=== PATIENT | male | born 1990 | race African-American/Black ===

== ENCOUNTER 2020-01-08 14:51 | Outpatient (CLI) | payer OTHER, SELFPAY ==
--- NOTE | ~2020-01-08 | CT_ITS ---
EXAMINATION: CT ankle RT wo con DATE: 01/08/2020 15:19 INDICATION: Post open reduction internal fixation of a right ankle fracture TECHNIQUE: High resolution computed tomography (CT) of the right was performed without intravenous co ntrast. Additional sagittal and coronal reconstructions were performed. Automated exposure control an d iterative reconstruction technique were employed. The dose-length product was 397.35 mGy-cm. COMPARISON: Right ankle radiographs dated 01/03/2020 FINDINGS: Callus formation is seen at the caudal aspect of a previously healing right fibular diaphyseal fractu re which is located beyond the cephalad margin of the [id number] CT imaging. There are a few small chronically nonunited fracture fragments along the posterior medial aspect of the distal tibia likel y posterior malleolar avulsion fracture fragments at the tibial side of the posterior inferior tibiof ibular ligament. There are some periosteal reaction along the lateral margin of the distal metadiaphy seal region of the tibia likely secondary to periosteal avulsion injury along the tibial side of the distal tibiofibular syndesmosis. There are a pair of cannulated lag screws at the medial malleolus fo r fixation of a prior medial malleoli fracture which has solidly healed in essentially anatomic align ment. There are also postoperative changes consistent with a TightRope type syndesmotic fixation with metallic buttons along the medial and lateral margins of a lucent wire fixation tract extending acro ss the distal tibia and fibula. No acute fractures identified. There is patchy disuse osteopenia thro ughout the visualized right mid and hindfoot. Osteoarthritis with mild to moderate nonuniform joint s pace are at the right ankle. Mild osteoarthritis at multiple joints in the mid and hindfoot. Small cedric ne island at the head of the talus. No ankle joint effusion or other evident abnormal fluid collectio ns. IMPRESSION: 1. Near-anatomic alignment post internal fixation of a now healed medial malleolar fracture and dista l tibiofibular syndesmotic injury as detailed above. 2. 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 Reviewed, dictated and finalized at location A. IMPRESSION: 1. Near-anatomic alignment post internal fixation of a now healed medial malleo lar fracture and distal tibiofibular syndesmotic injury as detailed above. 2. 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
== END 2020-01-08 14:52 | disposition home or self-care (01) ==
LOC: ANHIMG 14:57
PROVIDERS: PCP Family Medicine; Visit Provider Orthopaedic Surgery
DX: M19.071 Primary osteoarthritis, right ankle and foot (principal)
CPT/HCPCS: 73700

== ENCOUNTER 2023-11-09 18:01 | Emergency (ER) | payer MEDICARE, MEDICAID, SELFPAY ==
--- NOTE | ~2023-11-09 | XR_ITS ---
EXAM: XR hand RT 2V DATE: 11/09/2023 20:11 HISTORY: post reduction . COMPARISON: Same date at 6:18 PM. FINDINGS/IMPRESSION: Successful interval reduction of the dislocated right fourth and fifth metacarpa ls. Minimal persistent lateral displacement of 2 mm, measured at the third-fourth intermetatarsal art iculation. Reviewed, dictated and finalized at location K.
--- NOTE | ~2023-11-09 | XR_ITS ---
EXAM: XR hand RT min 3V, XR wrist RT min 3V DATE: 11/09/2023 18:26 HISTORY: injury . COMPARISON: None available. FINDINGS: Normal mineralization. Posterior dislocations at the bases of the fourth and fifth metacar pals, with one shaft width posterior displacement, anterior angulation, 5 mm foreshortening the fourt h metacarpal, and 13 mm foreshortening of the fifth metacarpal. No fracture. No lytic or blastic lesi on. Joint spaces are maintained. No erosion or periosteal change. Soft tissues within normal limits. IMPRESSION: Dislocation of the right fourth and fifth metacarpal bases, with posterior displacement a nd foreshortening. No definite hand or wrist fracture detected. Reviewed, dictated and finalized at location K. IMPRESSION: Dislocation of the right fourth and fifth metacarpal bases, with po sterior displacement and foreshortening. No definite hand or wrist fracture det ected.
[2023-11-09 18:16] VITALS: BP 132/72; PULSE 68; RESP 16; TEMP 37; O2SAT 98
--- NOTE | 2023-11-09 18:33 | ED.UPPEXIN ---
HPI - Extremity Injury (Upper) General Chief Complaint: Extremity Injury, Upper <Tremaine Bills MD - Last Filed: 11/09/23 18:38> Stated Complaint: right hand injury <Tremaine Bills MD - Last Filed: 11/09/23 18:38> Time Seen by Provider: 11/09/23 18:31 <Tremaine Bills MD - Last Filed: 11/09/23 18:38> Source: patient <Tremaine Bills MD - Last Filed: 11/09/23 18:38> Mode of arrival: ambulatory <Tremaine Bills MD - Last Filed: 11/09/23 18:38> Limitations: no limitations <Tremaine Bills MD - Last Filed: 11/09/23 18:38> History of Present Illness HPI narrative: 33-year-old otherwise healthy with complains of pain and swelling to his right hand. Patient states that he tripped and fell on an outstretched hand <Tremaine Bills MD - Last Filed: 11/09/23 18:38> MD complaint: injury to: right <Tremaine Bills MD - Last Filed: 11/09/23 18:38> Onset (ago): minute(s) (20) <Tremaine Bills MD - Last Filed: 11/09/23 18:38> Other Extremity Injury: Right: hand <Tremaine Bills MD - Last Filed: 11/09/23 18:38> Other injuries: none <Tremaine Bills MD - Last Filed: 11/09/23 18:38> Handedness: right <Tremaine Bills MD - Last Filed: 11/09/23 18:38> Place: home <Tremaine Bills MD - Last Filed: 11/09/23 18:38> Severity: mild <Tremaine Bills MD - Last Filed: 11/09/23 18:38> Exacerbating factors: none <Tremaine Bills MD - Last Filed: 11/09/23 18:38> Context: fall <Tremaine Bills MD - Last Filed: 11/09/23 18:38> Associated symptoms: denies other symptoms <Tremaine Bills MD - Last Filed: 11/09/23 18:38> Related Data Allergies/Adverse Reactions: Allergies Allergy/AdvReac Type Severity Reaction Status Date / Time No Known Allergies Allergy Unverified 01/08/23 14:25 <Tremaine Bills MD - Last Filed: 11/09/23 18:38> Review of Systems Review of Systems: All systems reviewed & are unremarkable except as noted in HPI and below <Tremaine Bills MD - Last Filed: 11/09/23 18:38> Constitutional: Constitutional: Reports no additional constitutional complaints <Tremaine Bills MD - Last Filed: 11/09/23 18:38> Eyes: Eyes: Reports no additional eye complaints <Tremaine Bills MD - Last Filed: 11/09/23 18:38> ENT: Reports system reviewed and no additional complaints, except as documented <Tremaine Bills MD - Last Filed: 11/09/23 18:38> Cardiovascular: Cardiovascular: Reports no additional cardiovascular complaints <Tremaine Bills MD - Last Filed: 11/09/23 18:38> Respiratory: Respiratory: Reports no additional respiratory complaints <Tremaine Bills MD - Last Filed: 11/09/23 18:38> Gastrointestinal: Gastrointestinal: Reports no additional gastrointestinal complaints <Tremaine Bills MD - Last Filed: 11/09/23 18:38> Musculoskeletal: Musculoskeletal: Reports as per HPI <Tremaine Bills MD - Last Filed: 11/09/23 18:38> Neurologic: Reports system reviewed and no additional complaints, except as documented <Tremaine Bills MD - Last Filed: 11/09/23 18:38> PMFSH Past Medical History Medical History: Medical History Aftercare following surgery Amniotic band syndrome Displaced comminuted fracture of shaft of right fibula, initial encounter for closed fracture Displaced fracture of medial malleolus of right tibia, initial encounter for closed fracture Left below-knee amputee Posterior tibial tendinitis of left leg Syndesmotic disruption of right ankle <Tremaine Bills MD - Last Filed: 11/09/23 18:38> Surgical History Surgical History: Surgical History History of left below knee amputation Status post open reduction and internal fixation (ORIF) of fracture <rTemaine Bills MD - Last Filed: 11/09/23 18:38> Social History Social History: Social History (Reviewed 11/09/23 @ 18:35 by Tremaine Bills,
[2023-11-09] MEDS: BUPivacaine HCL 0.25% PF 30 ML VIAL INFILTRATE (19:51)
[2023-11-09 20:33] VITALS: BP 114/85; PULSE 74; RESP 20; O2SAT 98
--- NOTE | 2023-11-10 13:47 | PC.NURSE ---
pt came in today seeking arm sling. given L arm sling, pitch flaker ok'd.
== END 2023-11-09 20:33 | disposition home or self-care (01) ==
PROVIDERS: Emergency Provider Emergency Medicine; PCP Physician Assistant Medical
DX: S63.064A Dislocation of metacarpal (bone), proximal end of right hand, initial encounter (principal); Z89.512 Acquired absence of left leg below knee; W01.0XXA Fall on same level from slipping, tripping and stumbling without subsequent striking against object, initial encounter
CPT/HCPCS: 26641; 26670; 73110; 73120; 73130; 99285; A4565

== ENCOUNTER 2023-11-18 10:42 | Emergency (ER) | payer MEDICARE, MEDICAID, SELFPAY ==
[2023-11-18 10:51] VITALS: BP 124/74; PULSE 64; RESP 16; TEMP 36.4; O2SAT 100
--- NOTE | 2023-11-18 12:13 | ED.UPPEXIN ---
HPI - Extremity Injury (Upper) General Chief Complaint: Extremity Injury, Upper Stated Complaint: needs new splint? Time Seen by Provider: 11/18/23 11:13 Source: patient Mode of arrival: ambulatory Limitations: no limitations History of Present Illness HPI narrative: Patient is a 33-year-old male who presents the ED with report of needing his splint replaced. Patient was seen in the ED here for a carpometacarpal joint dislocation on 11/08. Dislocation was reduced and patient was placed in a splint in the ED. patient states he took off the for splint after 24 hours. He then followed up with Dr. Roman, hand surgery, on 11/14 and was also noted to have a mallet finger over the right 5th digit at that time. He was placed back in an ulnar gutter splint with special attention to mallet finger. Patient is scheduled to follow-up in 2 weeks, but reports he had to take a shower today and removed his splint at home. Wanting splint replaced. Denies any new injury, pain, numbness. Related Data Allergies Allergy/AdvReac Type Severity Reaction Status Date / Time No Known Allergies Allergy Unverified 11/18/23 10:42 Review of Systems Review of Systems: CONSTITUTIONAL: Denies fever, chills, or sweats. MUSCULOSKELETAL: See HPI. NEUROLOGIC: Denies headache, dizziness, numbness, or weakness. All systems reviewed & are unremarkable except as noted in HPI and below PMFSH Past Medical History Medical History Aftercare following surgery Amniotic band syndrome Displaced comminuted fracture of shaft of right fibula, initial encounter for closed fracture Displaced fracture of medial malleolus of right tibia, initial encounter for closed fracture Left below-knee amputee Posterior tibial tendinitis of left leg Syndesmotic disruption of right ankle Surgical History Surgical History History of left below knee amputation Status post open reduction and internal fixation (ORIF) of fracture Social History Social History Social History: marijuana daily Smoking status: Unknown if ever smoked Tobacco type: cigarettes and e-cigarettes/vaping Alcohol intake: former Substance use: current Substance use type: marijuana Other substance usage details: DAILY Lack of Transportation: No Lack of Food: Never True Current Housing: I Have Housing Concerned About Future Housing: No Difficulty Paying Gas/Electric Bills: No Difficulty Paying for Meds: No Currently Unemployed: No Difficulty w/ Childcare or Family Care: No Living arrangements: with family Occupation/Education: occupation Gender identity (if verbalized by the patient): Male Sexual Orientation (if Verbalized by the Patient): Straight or Heterosexual Exam Narrative: GENERAL: Well appearing, well-nourished, non-toxic, in no acute distress. HEAD: Normocephalic, atraumatic. RESPIRATORY: Airway patent, respirations nonlabored. CARDIOVASCULAR: Regular rate and rhythm. Radial pulses equal bilaterally. MUSCULOSKELETAL: Moves all extremities. No gross deformities. Mild mallet finger deformity to right 5th digit. No significant pain. Minimal swelling noted. No dislocation deformity noted throughout metacarpal region. Sensation intact. Capillary refill intact. Several chronic amputation deformities noted to left hand. SKIN: Warm, dry, normal color. NEURO: A&O X3. Speech clear. PSYCHIATRIC: Appropriate mood and affect. Normal interaction. Course Vital Signs Vital signs: Vital Signs Temperature 97.5 F L 11/18/23 10:51 Pulse Rate 64 11/18/23 10:51 Respiratory Rate 16 11/18/23 10:51 Blood Pressure 124/74 11/18/23 10:51 Pulse Oximetry 100 11/18/23 10:51 Temperature 97.5 F L 11/18/23 10:51 Pulse Rate 64 11/18/23 10:51 Respiratory Rate 16
== END 2023-11-18 13:18 | disposition home or self-care (01) ==
PROVIDERS: Emergency Provider Physician Assistant; PCP Physician Assistant Medical
DX: S63.054D Dislocation of other carpometacarpal joint of right hand, subsequent encounter (principal); M20.011 Mallet finger of right finger(s)
CPT/HCPCS: 29125; 99282

== ENCOUNTER 2023-12-20 15:47 | Outpatient (CLI) | payer MEDICARE, MEDICAID, SELFPAY ==
--- NOTE | ~2023-12-20 | XR_ITS ---
XR hand RT min 3V Ordering provider: Monique Roman MD History: . take out of splint - isolate small finger . Comparison: November 09, 2023 FINDINGS: BONES: Fracture dislocation seen at the base of the distal interphalangeal joint of the little finger with anterior displacement compared to the previous examination. Small chip of bone is seen posterio rly. SOFT TISSUES: Swelling is seen in the area of the dislocation. IMPRESSION: Fracture dislocation at the base of the distal phalanx of the little finger with small bony chip seen posteriorly and displacement of the distal fragment anteriorly. Reviewed, dictated and finalized at location A. IMPRESSION: Fracture dislocation at the base of the distal phalanx of the little finger wit h small bony chip seen posteriorly and displacement of the distal fragment ante riorly.
== END 2023-12-20 15:48 | disposition home or self-care (01) ==
LOC: ANHIMG 15:57
PROVIDERS: PCP Physician Assistant Medical; Visit Provider Plastic Surgery
DX: M20.011 Mallet finger of right finger(s) (principal); S62.636A Displaced fracture of distal phalanx of right little finger, initial encounter for closed fracture
CPT/HCPCS: 73130

== ENCOUNTER 2024-08-25 08:43 | Emergency (ER) | payer MEDICARE, MEDICAID, SELFPAY ==
--- NOTE | 2024-08-25 08:47 | ED_ITS ---
HPI - Dental/Oral General Chief complaint: Dental/Oral Stated complaint: Dental Time Seen by Provider: 08/25/24 08:51 Source: patient, RN notes reviewed and old records reviewed Mode of arrival: ambulatory Limitations: no limitations History of Present Illness HPI Narrative: 34-year-old male presents to the [facility] with complaints of dental pain, right upper jaw pain. Has significant decay to the molars. Surrounding erythema to the gums. Has taken [id number] products. Symptoms started 2 days ago Related Data Allergies Allergy/AdvReac Type Severity Reaction Status Date / Time No Known Allergies Allergy Verified 08/25/24 08:45 Review of Systems Review of Systems: All systems reviewed & are unremarkable except as noted in HPI and below Constitutional: Constitutional: Reports no additional constitutional complaints ENT: Reports as per HPI and Reports dental pain Cardiovascular: Cardiovascular: Reports no additional cardiovascular complaints, Denies chest pain and Denies dyspnea Respiratory: Respiratory: Reports no additional respiratory complaints, Denies chest congestion, Denies cough and Denies dyspnea Musculoskeletal: Musculoskeletal: Reports no additional musculoskeletal complaints Integumentary/Breasts: Skin/Breast: Reports system reviewed and no additional complaints, except as docu PMFSH Past Medical History Medical History Posterior tibial tendinitis of left leg Aftercare following surgery Displaced comminuted fracture of shaft of right fibula, initial encounter for closed fracture Syndesmotic disruption of right ankle Displaced fracture of medial malleolus of right tibia, initial encounter for closed fracture Left below-knee amputee Amniotic band syndrome Surgical History Surgical History Status post open reduction and internal fixation (ORIF) of fracture History of left below knee amputation Social History Social History Social History: marijuana daily Smoking status: Unknown if ever smoked Tobacco type: cigarettes and e-cigarettes/vaping Alcohol intake: former Substance use: current Substance use type: marijuana Other substance usage details: DAILY Lack of Transportation: No Lack of Food: Never True Current Housing: I Have Housing Concerned About Future Housing: No Difficulty Paying Gas/Electric Bills: No Difficulty Paying for Meds: No Currently Unemployed: No Difficulty w/ Childcare or Family Care: No Living arrangements: with family Occupation/Education: occupation Gender identity (if verbalized by the patient): Male Sexual Orientation (if Verbalized by the Patient): Straight or Heterosexual Comments At the time of my signature, I reviewed and agree with the nursing past medical, surgical, social, and family history. There is no relevant family history pertinent to the patient complaint. Exam Const: General: cooperative, healthy appearing, comfortable, no acute distress, well developed, alert and well nourished Nutritional Appearance: well nourished Orientation/consciousness: patient oriented x3 Limitations: no limitations HENMT: Head: normal to inspection Ears: hearing grossly normal bilaterally, external ears normal, TM's normal bilaterally, EAC's normal, mastoids normal and no periauricular adenopathy Mouth: Yes Normal oral and palatal mucosa present, Yes lip normal, Yes tongue normal and Yes moist mucous membranes Teeth and gingiva: abnormal tooth and associated gingiva (Right upper) and caries Throat: posterior oropharynx normal, uvula midline and no uvular edema Eyes: General: appearance normal, both eyes and all related structures Alignment and Position: alignment normal Neck: Neck: normal visual inspection, full ROM, no lymphadenopathy and no meningeal signs Chest: Chest palpation & inspection: normal inspection of the chest Resp: Effort & Inspection: normal respiratory effort and able to speak in complete sentences Auscultation: clear to auscultation bilaterally, no crackles, no rales, no rhonchi and no wheezes Cardio: Rate: regular rate Skin: General skin exam: normal color and no rashes or lesions noted Neuro: General: patient oriented x3, gait normal, moves all extremities and no meningeal signs Cognition (Neuro): normal cognition Speech: normal speech Gait exam (Neuro): Normal gait present Extrem: General: normal to inspection, full ROM, capillary refill normal and normal gait Psych: Appearance: grossly normal and well kempt Mental Status: mental status grossly normal Speech and movement: Normal speech and movement present and Clear speech present Affect: normal affect Attitude: cooperative Course Course Level of Care: Express Care Visit Vital Signs Vital signs: Vital Signs Temperature 96.9 F L 08/25/24 08:52 Pulse Rate 82 08/25/24 08:52 Respiratory Rate 18 08/25/24 08:52 Blood Pressure 122/81 08/25/24 08:52 Pulse Oximetry 99 08/25/24 08:52 Oxygen Delivery Room Air 08/25/24 08:52 Temperature 96.9 F L 08/25/24 08:52 Pulse Rate 82 08/25/24 08:52 Respiratory Rate 18 08/25/24 08:52 Blood Pressure 122/81 08/25/24 08:52 Pulse Oximetry 99 08/25/24 08:52 Oxygen Delivery Room Air 08/25/24 08:52 Reviewed MDM - Dental/Oral MDM Narrative Medical decision making narrative: Patient sitting comfortably in exam room. Nontoxic, vitals stable. Patient presents with right upper dental pain, dental list was given. Started on antibiotics concern for infection versus abscess versus gingivitis, toothache. The patient appropriate for outpatient treatment with close follow-up Discharge instructions reviewed with patient, as well as provided in writing per nursing staff. The instructions also include specific and strict return/GO TO THE ER as well as f/u information. All questions have been answered, and the patient deny any further questions with discharge and discharge plan. Some parts of this dictation were generated by voice recognition software and may contain typographical and/or grammatical inaccuracies. Differential Diagnosis Differential diagnosis: Likely gingival abscess, dental caries, toothache and dental abscess Critical Care Time Critical Care Time Critical Care Time: No Discharge Plan Discharge Clinical Impression: Dental caries, Dental abscess Patient Disposition: Home, Self-Care Condition: Stable Instructions: Antibiotic Form, Dental Abscess (ED) Additional Instructions: Finish the entire course of antibiotics & use the mouthwash. After every time you eat be sure to use salt water rinses. Apply ice to face to help with pain. Take Tylenol alternating with Motrin as needed for pain. You can alternate every 4 hours You need to follow-up with a dental provider as soon as possible for further evaluation and treatment. A list of dental providers has been given to you Follow up with a Primary Care Provider (PCP) about medical needs. A PCP can help keep you healthy by preventive medicine and screening. Go to the ER for New or worsening symptoms. Patient Language: Citizen Of [place] Prescriptions: New penicillin V potassium 500 mg tablet 500 mg PO QID 7 Days Qty: 28 0RF No Action Claritin-D 24 Hour 10-240 mg tablet extended release 24 hr 1 tablet PO DAILY Qty: 30 0RF fluticasone propionate [Flonase Allergy Relief] 50 mcg/actuation spray,suspension 1 spray intranasal BID Qty: 16 2RF Rx Instructions: administer into each nostril Follow-up/Referrals: PHYSICIAN,PASSEN[employer]OR [Primary Care Provider] - Stand Alone Forms: Work/School Release IP Time of Disposition: 09:01
[2024-08-25 08:52] VITALS: BP 122/81; PULSE 82; RESP 18; TEMP 36.1; O2SAT 99
== END 2024-08-25 09:02 | disposition home or self-care (01) ==
PROVIDERS: Emergency Provider Nurse Practitioner
DX: K02.9 Dental caries, unspecified (principal); K04.7 Periapical abscess without sinus; F12.90 Cannabis use, unspecified, uncomplicated
CPT/HCPCS: 99213; G0463

== ENCOUNTER 2024-12-12 16:55 | Emergency (ER) | payer MEDICARE, SELFPAY ==
[2024-12-12] VITALS (12 sets, daily range): BP systolic 97–132; BP diastolic 54–95; PULSE 60–97; RESP 16–18; TEMP 36.4–36.8; O2SAT 97–100
[2024-12-12] MEDS: LACTATED RINGERS 1,000 ML 999 ML IV CONT ×2 (18:35→19:21)
[2024-12-12] MEDS: ONDANSETRON INJ 4 MG/2 ML VIAL IV PUSH (18:36)
--- NOTE | 2024-12-12 18:44 | ED.GENADULT ---
HPI - General Adult General Chief complaint: Nausea/Vomiting/Diarrhea Stated complaint: n/v, body stiffness Time Seen by Provider: 12/12/24 18:21 History of Present Illness HPI narrative: 34-year-old male presents to the emergency department nausea vomiting and suspected dehydration. 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 Patient states he did drink some electrolyte solution but mainly drink water and was having profuse nausea and vomiting. Patient does describe some muscle cramping, abdominal cramping and patient did report some lightheaded and dizziness. Patient denies any prior history of cyclic nausea and vomiting. Patient states he is otherwise healthy. Related Data Allergies Allergy/AdvReac Type Severity Reaction Status Date / Time No Known Allergies Allergy Verified 12/12/24 17:08 Review of Systems Review of Systems: All systems reviewed & are unremarkable except as noted in HPI and below PMFSH Past Medical History Medical History Posterior tibial tendinitis of left leg Aftercare following surgery Displaced comminuted fracture of shaft of right fibula, initial encounter for closed fracture Syndesmotic disruption of right ankle Displaced fracture of medial malleolus of right tibia, initial encounter for closed fracture Left below-knee amputee Amniotic band syndrome Surgical History Surgical History Status post open reduction and internal fixation (ORIF) of fracture History of left below knee amputation Social History Social History Social History: marijuana daily Smoking status: Unknown if ever smoked Tobacco type: cigarettes and e-cigarettes/vaping Alcohol intake: former Substance use: current Substance use type: marijuana Other substance usage details: DAILY Lack of Transportation: No Lack of Food: Never True Current Housing: I Have Housing Concerned About Future Housing: No Difficulty Paying Gas/Electric Bills: No Difficulty Paying for Meds: No Currently Unemployed: No Difficulty w/ Childcare or Family Care: No Living arrangements: with family Occupation/Education: occupation Gender identity (if verbalized by the patient): Male Sexual Orientation (if Verbalized by the Patient): Straight or Heterosexual Exam Narrative: APPEARANCE: Well appearing, no pain, no distress, well-nourished. HEAD: normocephalic, atraumatic. EYES: PERRLA/EOMI, conjunctivae clear. NOSE: Normal no drainage EARS:TMS clear with good light reflex. THROAT: Pharynx clear, no exudate. NECK: Supple. No adenopathy, no masses. RESPIRATORY: Airway patent, respirations nonlabored. Clear to auscultation bilaterally, no rales, rhonchi, wheezing. CARDIOVASCULAR: Regular rate and rhythm without murmurs rubs or gallops. ABDOMINAL: Soft, nontender, nondistended, normal bowel sounds MUSCULOSKELETAL: Moves all extremities. Strength/ROM intact, No edema, No calf tenderness. NEURO: Alert. Cranial nerves II through XII intact. Grossly intact SKIN: Warm, dry. Normal Color Course Vital Signs Vital signs: Vital Signs Temperature 97.6 F 12/12/24 17:06 Pulse Rate 97 12/12/24 17:06 Respiratory Rate 16 12/12/24 17:06 Blood Pressure 107/68 12/12/24 17:06 Pulse Oximetry 100 12/12/24 17:06 Oxygen Delivery Room Air 12/12/24 17:06 Temperature 97.8 F 12/12/24 22:18 Pulse Rate 60 12/12/24 22:18 Respiratory Rate 16 12/12/24 22:18 Blood Pressure 100/65 12/12/24 22:18 Pulse Oximetry 98 12/12/24 22:18 Oxygen Delivery Room Air 12/12/24 17:06 Medical Decision Making [facility] Narrative Medical decision making narrative: 34-year-old male presents emergency department for evaluation for nausea and vomiting. Patient had decreased p.o. intake at work and became dehydrated. Patient is afebrile but does have a leukocytosis of 10.7 and hemoglobin of 15.8. Mild elevation in creatinine at 1.95 this did improve to 1.43 after rehydration. Patient is producing urine. UA was negative for infection. Patient's initial lactic acid was elevated at 2.4 but did improve to 1.2. Patient is tolerating p.o.. Pain was provided Zofran for nausea control. Patient was provided multiple days off to recover from heat exhaustion. All questions concerns were addressed patient was well-appearing at time of discharge. Differential Diagnosis Differential Diagnosis: EMILIE, dehydration, UTI, COVID, RSV, influenza, treated nausea vomiting Vital Signs Vital Signs: Vital Signs Temperature 97.6 F 12/12/24 17:06 Pulse Rate 97 12/12/24 17:06 Respiratory Rate 16 12/12/24 17:06 Blood Pressure 107/68 12/12/24 17:06 Pulse Oximetry 100 12/12/24 17:06 Oxygen Delivery Room Air 12/12/24 17:06 Temperature 97.8 F 12/12/24 22:18 Pulse Rate 60 12/12/24 22:18 Respiratory Rate 16 12/12/24 22:18 Blood Pressure 100/65 12/12/24 22:18 Pulse Oximetry 98 12/12/24 22:18 Oxygen Delivery Room Air 12/12/24 17:06 Lab Data Lab results reviewed: Yes I reviewed the patient's lab results. 12/12/24 18:39 12/12/24 21:20 Labs: Lab Results 12/12/24 12/12/24 12/12/24 Range/Units 18:39 18:44 20:25 WBC 10.7 H (4.5-10.0) K/mm3 RBC 5.66 (4.6-6.20) M/mm3 Hgb 15.8 (14.0-18.0) g/dL Hct 47.6 (42.0-52.0) % MCV 84.1 (80-100) fl MCH 27.9 (26-34) pg MCHC 33.2 (32-36) g/dl RDW 13.8 (11.5-14.5) % Plt Count 404 H (150-375) k/mm3 MPV 9.4 (7.4-10.4) fl Immature Gran % (Auto) 0.4 (0-0.5) % Neut % (Auto) 82.4 H (45.5-73.1) % Lymph % (Auto) 10.5 L (18.3-44.2) % [place] % (Auto) 6.1 (2.6-8.5) % Eos % (Auto) 0.1 (0-4.4) % Baso % (Auto) 0.5 (0.2-1.2) % Lymph # (Auto) 1.13 (0.9-3.2) K/mm3 [place] # (Auto) 0.7 H (0.1-0.6) K/mm3 Eos # (Auto) 0.0 (0-0.3) K/mm3 Baso # (Auto) 0.1 (0.0-0.1) K/mm3 Abs Immat Gran (auto) 0.04 H (0.00-0.031) K/mm3 Absolute Neuts (auto) 8.9 H (1.3-6.7) K/mm3 Absolute Nucleated RBC 0.000 (0.0-0.012) K/mm3 Nucleated RBC % 0.0 (0.0-0.2) % Sodium 140 (137-145) mmol/L Potassium 4.7 (3.4-5.0) mmol/L Chloride 99 (98-107) mmol/L Carbon Dioxide 24 (22-30) mmol/L Anion Gap 17 H (4-12) mmol/L BUN 19 (9-20) mg/dL Creatinine 1.95 H (0.7-1.3) mg/dL Estim Creat Clear Calc 56 ml/min Estimated GFR 40 L (59 - ) Glucose 116 H (65-110) mg/dL Lactic Acid 2.4 H (0.7-2.0) mmol/L Calcium 10.9 H (8.4-10.2) mg/dL Magnesium 2.2 (1.6-2.3) mg/dL Total Bilirubin 0.5 (0.2-1.3) mg/dL AST 46 (17-59) U/L ALT 38 (6-50) U/L Alkaline Phosphatase 69 (38-126) U/L Total Protein 10.4 H (6.3-8.2) g/dL Albumin 5.4 H (3.5-5.1) g/dL Lipase 66 (23-300) U/L Urine Color Yellow (Yellow) Urine Appearance Cloudy H (Clear) Urine pH 5.5 (5.0-9.0) Ur Specific [place] 1.024 (1.001-1.035) Urine Protein 1+ H (Negative) mg/dL Urine Glucose (UA) Negative (Negative) mg/dL Urine Ketones 1+ H (Negative) mg/dL Ur Blood (Man) Non-hemolyzed trace (Negative) Urine Nitrate Negative (Negative) Urine Bilirubin Negative (Negative) Urine Urobilinogen 1.0 (<2.0) mg/dL Add Ur Microanalysis Reviewed Leukocyte Esterase Rfl Negative (Negative) LUZ/UL Urine RBC 6-10 H (0-2) /hpf Urine WBC 0-5 (0-3) /hpf Ur Squamous Epith Cells None seen (Few) /hpf Urine Bacteria None seen /hpf Urine Casts >20 Hyaline Casts Present (None) /lpf 12/12/24 Range/Units 21:20 WBC (4.5-10.0) K/mm3 RBC (4.6-6.20) M/mm3 Hgb (14.0-18.0) g/dL Hct (42.0-52.0) % MCV (80-100) fl MCH (26-34) pg MCHC (32-36) g/dl RDW (11.5-14.5) % Plt Count (150-375) k/mm3 MPV (7.4-10.4) fl Immature Gran % (Auto) (0-0.5) % Neut % (Auto) (45.5-73.1) % Lymph % (Auto) (18.3-44.2) % [place] % (Auto) (2.6-8.5) % Eos % (Auto) (0-4.4) % Baso % (Auto) (0.2-1.2) % Lymph # (Auto) (0.9-3.2) K/mm3 [place] # (Auto) (0.1-0.6) K/mm3 Eos # (Auto) (0-0.3) K/mm3 Baso # (Auto) (0.0-0.1) K/mm3 Abs Immat Gran (auto) (0.00-0.031) K/mm3 Absolute Neuts (auto) (1.3-6.7) K/mm3 Absolute Nucleated RBC (0.0-0.012) K/mm3 Nucleated RBC % (0.0-0.2) % Sodium 138 (137-145) mmol/L Potassium 4.7 (3.4-5.0) mmol/L Chloride 102 (98-107) mmol/L Carbon Dioxide 24 (22-30) mmol/L Anion Gap 12 (4-12) mmol/L BUN 17 (9-20) mg/dL Creatinine 1.43 H (0.7-1.3) mg/dL Estim Creat Clear Calc 75 ml/min Estimated GFR 57 L (59 - ) Glucose 102 (65-110) mg/dL Lactic Acid 1.2 (0.7-2.0) mmol/L Calcium 10.1 (8.4-10.2) mg/dL Magnesium (1.6-2.3) mg/dL Total Bilirubin (0.2-1.3) mg/dL AST (17-59) U/L ALT (6-50) U/L Alkaline Phosphatase (38-126) U/L Total Protein (6.3-8.2) g/dL Albumin (3.5-5.1) g/dL Lipase (23-300) U/L Urine Color (Yellow) Urine Appearance (Clear) Urine pH (5.0-9.0) Ur Specific [place] (1.001-1.035) Urine Protein (Negative) mg/dL Urine Glucose (UA) (Negative) mg/dL Urine Ketones (Negative) mg/dL Ur Blood (Man) (Negative) Urine Nitrate (Negative) Urine Bilirubin (Negative) Urine Urobilinogen (<2.0) mg/dL Add Ur Microanalysis Leukocyte Esterase Rfl (Negative) LUZ/UL Urine RBC (0-2) /hpf Urine WBC (0-3) /hpf Ur Squamous Epith Cells (Few) /hpf Urine Bacteria /hpf Urine Casts Hyaline Casts (None) /lpf Discharge Plan Discharge Clinical Impression: Acute dehydration, Nausea and vomiting Patient Disposition: Home Condition: Stable Instructions: Antibiotic Form, Dehydration (ED), Clear Liquid Diet (ED), Acute Nausea and Vomiting (ED) Additional Instructions: Zofran as needed for nausea control. Drink plenty of fluids. Have close follow-up with your primary care physician. Patient Language: [place]ijani Prescriptions: New ondansetron 4 mg tablet,disintegrating 4 mg PO Q8H PRN (Reason: nausea and vomiting) Qty: 14 0RF No Action penicillin V potassium 500 mg tablet 500 mg PO QID 7 Days Qty: 28 0RF Claritin-D 24 Hour 10-240 mg tablet extended release 24 hr 1 tablet PO DAILY Qty: 30 0RF fluticasone propionate [Flonase Allergy Relief] 50 mcg/actuation spray,suspension 1 spray intranasal BID Qty: 16 2RF Rx Instructions: administer into each nostril Follow-up/Referrals: PHYSICIAN,X RAY SERVICE ENGINEER [Primary Care Provider] - Stand Alone Forms: Work/School Release IP
[2024-12-12 18:47] LABS: Hematocrit 47.6 % (42.0-52.0); Hemoglobin 15.8 g/dL (14.0-18.0); Immature Granulocyte Percent A 0.4 % (0-0.5); Lymphocytes Absolute Auto 1.13 K/mm3 (0.9-3.2); Mean Corpuscular HGB Conc 33.2 g/dl (32-36); Mean Corpuscular Hemoglobin 27.9 pg (26-34); Mean Corpuscular Volume 84.1 fl (80-100); Nucleated Red Blood Cells Absolute Auto 0.000 K/mm3 (0.0-0.012); Nucleated Red Blood Cells Perc 0.0 % (0.0-0.2); Platelet Count Result 404 k/mm3 (150-375); Red Blood Count 5.66 M/mm3 (4.6-6.20); White Blood Count 10.7 K/mm3 (4.5-10.0)
[2024-12-12 18:57] LABS: Alanine Aminotransferase 38 U/L (6-50); Albumin Level 5.4 g/dL (3.5-5.1); Alkaline Phosphatase 69 U/L (38-126); Anion Gap 17 mmol/L (4-12); Aspartate Amino Transferase 46 U/L (17-59); Bilirubin,Total 0.5 mg/dL (0.2-1.3); Blood Urea Nitrogen 19 mg/dL (9-20); Calcium 10.9 mg/dL (8.4-10.2); Carbon Dioxide 24 mmol/L (22-30); Chloride 99 mmol/L (98-107); Estimated CRCL calculation 56 ml/min; Estimated Glomerular Filt Rate 40; Glucose 116 mg/dL (65-110); Lipase 66 U/L (23-300); Potassium 4.7 mmol/L (3.4-5.0); Sodium 140 mmol/L (137-145); Total Protein 10.4 g/dL (6.3-8.2)
[2024-12-12 19:10] LABS: Magnesium 2.2 mg/dL (1.6-2.3)
[2024-12-12 20:42] LABS: Add Urine Microscopic? YES; Appearance Urine Cloudy (Clear); Glucose Urine UA Negative (Negative); Leukocyte Esterase Ur Negative LEU/UL (Negative); Need Manual Microscopic Reviewed; Nitrate Urine Negative (Negative); Non Pathogenic Casts >20; Specific Grav Ur 1.024 (1.001-1.035)
[2024-12-12 21:58] LABS: Anion Gap 12 mmol/L (4-12); Blood Urea Nitrogen 17 mg/dL (9-20); Calcium 10.1 mg/dL (8.4-10.2); Carbon Dioxide 24 mmol/L (22-30); Chloride 102 mmol/L (98-107); Estimated CRCL calculation 75 ml/min; Estimated Glomerular Filt Rate 57; Glucose 102 mg/dL (65-110); Potassium 4.7 mmol/L (3.4-5.0); Sodium 138 mmol/L (137-145)
== END 2024-12-12 22:21 | disposition home or self-care (01) ==
PROVIDERS: Emergency Provider Emergency Medicine
DX: E86.0 Dehydration (principal); R11.2 Nausea with vomiting, unspecified; F12.90 Cannabis use, unspecified, uncomplicated
CPT/HCPCS: 36415; 80048; 80053; 81001; 83605; 83690; 83735; 85025; 96361; 96374; 99284; J2405; J7120

== ENCOUNTER 2024-12-19 18:00 | Emergency (ER) | payer MEDICARE, SELFPAY ==
[2024-12-19 18:02] VITALS: BP 131/66; PULSE 78; RESP 16; TEMP 36.6; O2SAT 100
[2024-12-19 18:23] VITALS: BP 99/76; PULSE 80
[2024-12-19 18:24] VITALS: BP 127/79; PULSE 79
[2024-12-19 18:25] VITALS: BP 127/84; PULSE 87
[2024-12-19 18:38] LABS: Hematocrit 46.4 % (42.0-52.0); Hemoglobin 15.5 g/dL (14.0-18.0); Immature Granulocyte Percent A 0.2 % (0-0.5); Lymphocytes Absolute Auto 1.92 K/mm3 (0.9-3.2); Mean Corpuscular HGB Conc 33.4 g/dl (32-36); Mean Corpuscular Hemoglobin 27.9 pg (26-34); Mean Corpuscular Volume 83.6 fl (80-100); Nucleated Red Blood Cells Absolute Auto 0.000 K/mm3 (0.0-0.012); Nucleated Red Blood Cells Perc 0.0 % (0.0-0.2); Platelet Count Result 414 k/mm3 (150-375); Red Blood Count 5.55 M/mm3 (4.6-6.20); White Blood Count 8.5 K/mm3 (4.5-10.0)
[2024-12-19 18:55] LABS: Alanine Aminotransferase 42 U/L (6-50); Albumin Level 5.6 g/dL (3.5-5.1); Alkaline Phosphatase 76 U/L (38-126); Anion Gap 18 mmol/L (4-12); Aspartate Amino Transferase 46 U/L (17-59); Bilirubin,Total 0.7 mg/dL (0.2-1.3); Blood Urea Nitrogen 15 mg/dL (9-20); Calcium 10.2 mg/dL (8.4-10.2); Carbon Dioxide 23 mmol/L (22-30); Chloride 97 mmol/L (98-107); Estimated CRCL calculation 81 ml/min; Estimated Glomerular Filt Rate > 60; Glucose 93 mg/dL (65-110); Lipase 218 U/L (23-300); Potassium 4.0 mmol/L (3.4-5.0); Sodium 138 mmol/L (137-145); Total Protein 10.6 g/dL (6.3-8.2)
[2024-12-19] MEDS: ONDANSETRON INJ 4 MG/2 ML VIAL IV PUSH (19:36)
[2024-12-19] MEDS: SODIUM CHLORIDE 0.9% IV 1,000 ML 999 ML IV CONT ×2 (19:36→21:01)
--- NOTE | 2024-12-19 19:58 | ED_ITS ---
HPI - Nausea/Vomiting/Diarrhea General Chief complaint: Nausea/Vomiting/Diarrhea Stated complaint: vomiting Time Seen by Provider: 12/19/24 18:20 History of Present Illness HPI Narrative: 34-year-old male presents emergency department with concerns for dehydration. Patient states he woke up in his normal state of health. 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 Also endorsing abdominal cramping. Patient states he was here for similar symptoms on 12/12/2024 and had improvement after IV hydration. The patient states this feels similar. He denies any focal abdominal pain, dysuria, hematuria, fevers, chest pain or shortness of breath. Related Data Allergies Allergy/AdvReac Type Severity Reaction Status Date / Time No Known Allergies Allergy Verified 12/12/24 17:08 Review of Systems 2 Review of Systems: All systems reviewed & are unremarkable except as noted in HPI and below PMFSH Past Medical History Medical History Posterior tibial tendinitis of left leg Aftercare following surgery Displaced comminuted fracture of shaft of right fibula, initial encounter for closed fracture Syndesmotic disruption of right ankle Displaced fracture of medial malleolus of right tibia, initial encounter for closed fracture Left below-knee amputee Amniotic band syndrome Surgical History Surgical History Status post open reduction and internal fixation (ORIF) of fracture History of left below knee amputation Social History Social History Social History: marijuana daily Smoking status: Unknown if ever smoked Tobacco type: cigarettes and e-cigarettes/vaping Alcohol intake: former Substance use: current Substance use type: marijuana Other substance usage details: DAILY Lack of Transportation: No Lack of Food: Never True Current Housing: I Have Housing Concerned About Future Housing: No Difficulty Paying Gas/Electric Bills: No Difficulty Paying for Meds: No Currently Unemployed: No Difficulty w/ Childcare or Family Care: No Living arrangements: with family Occupation/Education: occupation Gender identity (if verbalized by the patient): Male Sexual Orientation (if Verbalized by the Patient): Straight or Heterosexual Exam 2 Narrative: GENERAL: Well-appearing, well-nourished, and in no acute distress. HEAD: Normocephalic, atraumatic. EYES: EOMI. ENT: Nares clear, no rhinorrhea or epistaxis. Mucous membranes moist. NECK: Supple. CHEST: Clear to auscultation. No respiratory distress. HEART: Regular rate and rhythm. No murmur heard. Normal peripheral pulses. ABDOMEN: Soft, nontender, nondistended, normal active bowel sounds. EXTREMITIES: Normal range of motion. No edema. SKIN: Warm, dry, no rash. NEURO: No focal deficits. Alert and oriented x3 Course Vital Signs Vital signs: Vital Signs Temperature 97.8 F 12/19/24 18:02 Pulse Rate 78 12/19/24 18:02 Respiratory Rate 16 12/19/24 18:02 Blood Pressure 131/66 12/19/24 18:02 Pulse Oximetry 100 12/19/24 18:02 Oxygen Delivery Room Air 12/19/24 18:02 Temperature 97.8 F 12/19/24 18:02 Pulse Rate 87 12/19/24 18:25 Respiratory Rate 16 12/19/24 18:02 Blood Pressure 127/84 12/19/24 18:25 Pulse Oximetry 100 12/19/24 18:02 Oxygen Delivery Room Air 12/19/24 18:02 MDM - Nausea/Vomiting/Diarrhea MDM Narrative Medical decision making narrative: 34-year-old male presents emergency department for concerns for dehydration. 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 Triage vitals are stable. Patient is afebrile and nontoxic appearing resting comfortably in the exam bed. Abdomen is soft and nontender. Lab work shows no leukocytosis or anemia. Chemistries with a creatinine of 1.31. On most recent ED visit, patient's creatinine was 1.95 improved to 1.43 after fluids. Urinalysis with 3+ ketonuria, no UTI. Lipase is normal. Orthostatic vital signs are normal. CK is mildly elevated to 612. Patient updated on results. He received 2 L of IV fluids and Zofran with significant improvement in sx and is ready to go home. I encouraged increased fluid intake. The patient has Zofran at home which I encouraged him to use as needed. He states he does not need a refill. Will give him a for few days of work to rest and hydrate. Advised follow-up with PCP, referral provided. Discussed strict ED return precautions. He is agreeable with the plan verbalized understanding. Discharged in stable condition. Lab Data 12/19/24 18:32 12/19/24 18:32 Labs: Lab Results 12/19/24 12/19/24 Range/Units 18:32 20:27 WBC 8.5 (4.5-10.0) K/mm3 RBC 5.55 (4.6-6.20) M/mm3 Hgb 15.5 (14.0-18.0) g/dL Hct 46.4 (42.0-52.0) % MCV 83.6 (80-100) fl MCH 27.9 (26-34) pg MCHC 33.4 (32-36) g/dl RDW 13.2 (11.5-14.5) % Plt Count 414 H (150-375) k/mm3 MPV 9.2 (7.4-10.4) fl Immature Gran % (Auto) 0.2 (0-0.5) % Neut % (Auto) 68.6 (45.5-73.1) % Lymph % (Auto) 22.5 (18.3-44.2) % [place] % (Auto) 7.3 (2.6-8.5) % Eos % (Auto) 0.6 (0-4.4) % Baso % (Auto) 0.8 (0.2-1.2) % Lymph # (Auto) 1.92 (0.9-3.2) K/mm3 [place] # (Auto) 0.6 (0.1-0.6) K/mm3 Eos # (Auto) 0.1 (0-0.3) K/mm3 Baso # (Auto) 0.1 (0.0-0.1) K/mm3 Abs Immat Gran (auto) 0.02 (0.00-0.031) K/mm3 Absolute Neuts (auto) 5.9 (1.3-6.7) K/mm3 Absolute Nucleated RBC 0.000 (0.0-0.012) K/mm3 Nucleated RBC % 0.0 (0.0-0.2) % Sodium 138 (137-145) mmol/L Potassium 4.0 (3.4-5.0) mmol/L Chloride 97 L (98-107) mmol/L Carbon Dioxide 23 (22-30) mmol/L Anion Gap 18 H (4-12) mmol/L BUN 15 (9-20) mg/dL Creatinine 1.31 H (0.7-1.3) mg/dL Estim Creat Clear Calc 81 ml/min Estimated GFR > 60 (59 - ) Glucose 93 (65-110) mg/dL Calcium 10.2 (8.4-10.2) mg/dL Total Bilirubin 0.7 (0.2-1.3) mg/dL AST 46 (17-59) U/L ALT 42 (6-50) U/L Alkaline Phosphatase 76 (38-126) U/L Total Creatine Kinase 612 H (55-170) U/L Total Protein 10.6 H (6.3-8.2) g/dL Albumin 5.6 H (3.5-5.1) g/dL Lipase 218 (23-300) U/L Urine Color Yellow (Yellow) Urine Appearance Clear (Clear) Urine pH 5.0 (5.0-9.0) Ur Specific [place] 1.022 (1.001-1.035) Urine Protein Negative (Negative) mg/dL Urine Glucose (UA) Negative (Negative) mg/dL Urine Ketones 3+ H (Negative) mg/dL Ur Blood (Man) Negative (Negative) Urine Nitrate Negative (Negative) Urine Bilirubin Negative (Negative) Urine Urobilinogen 0.2 (<2.0) mg/dL Leukocyte Esterase Rfl Negative (Negative) LUZ/UL Discharge Plan Discharge Clinical Impression: Dehydration Patient Disposition: Home Condition: Stable Instructions: Antibiotic Form, Dehydration (ED) Additional Instructions: You were evaluated in the emergency department for concerns for dehydration. Your given IV fluids. Please make sure to drink plenty fluids at home including water, Gatorade and Pedialyte. Take ondansetron as needed for nausea. Follow- up closely with her primary care provider. Return to the emergency department if you develop chest pain, shortness of breath, your unable to tolerate food or fluids, or other concerning symptoms. Patient Language: Polish Prescriptions: No Action penicillin V potassium 500 mg tablet 500 mg PO QID 7 Days Qty: 28 0RF Claritin-D 24 Hour 10-240 mg tablet extended release 24 hr 1 tablet PO DAILY Qty: 30 0RF ondansetron 4 mg tablet,disintegrating 4 mg PO Q8H PRN (Reason: nausea and vomiting) Qty: 14 0RF fluticasone propionate [Flonase Allergy Relief] 50 mcg/actuation spray,suspension 1 spray intranasal BID Qty: 16 2RF Rx Instructions: administer into each nostril Follow-up/Referrals: Radha Denney DO [Physician] - PHYSICIAN,CARDIOVASCULAR TECHNOLOGIST [Primary Care Provider] -
[2024-12-19 20:35] LABS: Add Urine Microscopic? NO; Appearance Urine Clear (Clear); Glucose Urine UA Negative (Negative); Leukocyte Esterase Ur Negative LEU/UL (Negative); Nitrate Urine Negative (Negative); Specific Grav Ur 1.022 (1.001-1.035)
[2024-12-19 20:52] LABS: Creatine Kinase 612 U/L (55-170)
== END 2024-12-19 21:40 | disposition home or self-care (01) ==
PROVIDERS: Emergency Provider Physician Assistant
DX: E86.0 Dehydration (principal)
CPT/HCPCS: 36415; 80053; 81003; 82550; 83690; 85025; 96361; 96374; 99284; J2405; J7030